=== PATIENT | male | born 1935 | race Caucasian/White ===

== ENCOUNTER 2022-03-16 17:45 | Inpatient (IN) | payer MEDICARE ==
[~2022-03-16] VITALS: Ht 185.4 cm; Wt 77.4 kg
[2022-03-17 01:22] LABS: BASOPHILS ABSOLUTE AUTO 0.06 K/mm3 (0.00-0.23); BASOPHILS PERCENT AUTO 0 % (0-2); EOSINOPHILS ABSOLUTE AUTO 0.06 K/mm3 (0.00-0.68); EOSINOPHILS PERCENT AUTO 0 % (0-6); Hemoglobin 10.8 g/dL (13.5-17.5); IMMATURE GRAN ABSOLUTE AUTO 0.27 K/mm3 (0.00-0.10); IMMATURE GRAN PERCENT AUTO 1 % (0-1); LYMPHOCYTES PERCENT AUTO 6 % (21-46); MONOCYTES ABSOLUTE AUTO 0.95 K/mm3 (0.16-1.47); MONOCYTES PERCENT AUTO 4 % (4-13); Mean Corpuscular HGB 30.5 pg (26.0-34.0); Mean Corpuscular HGB Conc 33.8 g/dL (31.5-36.5); Mean Corpuscular Volume 90 fL (80-100); Mean Platelet Volume 9.3 fL (9.1-12.4); NEUTROPHILS PERCENT AUTO 89 % (41-73); Platelet Count 671 K/mm3 (150-400); RDW Coefficient Variation 14.6 % (11.7-14.2); RDW Standard Deviation 48.6 fL (35.1-46.3); Red Blood Cell Count 3.54 M/mm3 (4.30-5.90); White Blood Cell Count 25.64 K/mm3 (4.00-11.30)
[2022-03-17 01:40] LABS: Albumin, Blood 2.6 g/dL (3.4-5.0); Albumin/Globulin Ratio 0.5 (0.8-1.8); Bilirubin, Total 0.6 mg/dL (0.1-1.0); Bun/Creatinine Ratio 23.9 (12.0-20.0); Calcium, Blood 8.3 mg/dL (8.5-10.1); Creatinine, Blood 3.43 mg/dL (0.60-1.20); Globulin, Blood 5.1 g/dL (2.2-4.0); Potassium, Blood 4.9 mmol/L (3.5-5.5); Total Protein, Blood 7.7 g/dL (6.4-8.2)
[2022-03-17 01:57] LABS: Source, Urine Foley catheter
[2022-03-17 02:12] LABS: Bilirubin, Urine Neg (Neg); Blood, Urine 5+ (Neg); Glucose Qualitative, Urine Neg (Neg); Ketones, Urine Neg (Neg); Leukocyte Esterase, Urine 3+ (Neg); Nitrite, Urine Pos (Neg); Protein, Urine 1+ (Neg); Urobilinogen, Urine NORM (Normal)
[2022-03-17 02:24] LABS: Appearance, Urine Hazy (Clear); Color, Urine Yellow (P-Yellow)
[2022-03-17 02:25] LABS: Amorphous Light (0-Heavy); Bacteria Mod /hpf; Squamous Epithelial Cells Not Seen /hpf (Few); White Blood Cells, Urine 50-100 /hpf (0-5)
--- NOTE | 2022-03-17 06:50 | NUR ---
SHIFT SUMMARY PT CONFUSED. BED ALARM ON. PT VOMITED X3, BROWN EMESIS, SUCTION AT BEDSIDE. MEDICATED FOR NAUSEA TWICE. UNABLE TO ANSWER ADMITTING QUESTIONS, FILLED IN WHAT I COULD WITH TRANSFER PAPERWORK. NPO. DOES NOT CALL APPROPRIATELY, BUT CALL LIGHT WITHIN REACH.
[2022-03-17] MEDS ORDERED: LATA.005SO BOTHEYES (08:36)
[2022-03-17] MEDS ORDERED: Alphagan P5 ML BOTHEYES (08:36)
[2022-03-17] MEDS ORDERED: FERROUS SULFAT325 M3 PO (08:38)
[2022-03-17] MEDS ORDERED: ASPI325 PO (08:39)
[2022-03-17] MEDS ORDERED: OMEP20ER PO (08:39)
[2022-03-17] MEDS ORDERED: MIRALAX17 GM PO (08:39)
[2022-03-17] MEDS ORDERED: SENN187 PO (08:40)
[2022-03-17] MEDS ORDERED: MULTIPLE VITAM1 EACH PO (08:40)
[2022-03-17 10:09] LABS: Bun/Creatinine Ratio 24.3 (12.0-20.0); Calcium, Blood 8.3 mg/dL (8.5-10.1); Creatinine, Blood 3.34 mg/dL (0.60-1.20); Potassium, Blood 4.7 mmol/L (3.5-5.5)
--- NOTE | 2022-03-17 15:28 | NUR ---
TELEPHONE CALL WITH CINDY MAYA, UPDATED ON CODE STATUS DNR, SBFT FRIDAY.
--- NOTE | 2022-03-17 15:30 | NUR ---
SHIFT SUMMARY PT A&OX1, PLEASANTLY CONFUSED. PLAN TO REMAIN NPO/ORAL CARE, SBFT FRIDAY, ZOFRAN Q6P, ABX PER EMAR. ZULMA/NIAVA AWARE OF PLAN. WILL REPORT TO ONCOMING NOC RN.
[2022-03-17 17:43] LABS: Bun/Creatinine Ratio 22.3 (12.0-20.0); Calcium, Blood 8.1 mg/dL (8.5-10.1); Creatinine, Blood 3.36 mg/dL (0.60-1.20); Potassium, Blood 4.6 mmol/L (3.5-5.5)
--- NOTE | 2022-03-18 00:13 | NUR ---
SUMMARY NO NEW CHANGES NOTED. PT DRY HEAVES AT TIMES. NO EMESIS NOTED. ORAL CARE PERFORMED AND PT TOLERATED WELL. CALL LIGHT IN REACH AND BED ALARM ON.
[2022-03-18 05:02] LABS: Hematocrit 32.3 % (37.0-53.0); Hemoglobin 10.3 g/dL (13.5-17.5); Mean Corpuscular HGB 29.4 pg (26.0-34.0); Mean Corpuscular HGB Conc 31.9 g/dL (31.5-36.5); Mean Corpuscular Volume 92 fL (80-100); Mean Platelet Volume 9.3 fL (9.1-12.4); Platelet Count 716 K/mm3 (150-400); RDW Coefficient Variation 14.6 % (11.7-14.2); RDW Standard Deviation 48.8 fL (35.1-46.3); White Blood Cell Count 20.56 K/mm3 (4.00-11.30)
[2022-03-18 05:18] LABS: Bun/Creatinine Ratio 21.1 (12.0-20.0); Calcium, Blood 8.1 mg/dL (8.5-10.1); Creatinine, Blood 3.51 mg/dL (0.60-1.20); Potassium, Blood 4.2 mmol/L (3.5-5.5)
--- NOTE | 2022-03-18 05:42 | NUR ---
SHIFT SUMMARY PT A&OX1, PLEASANT BUT CONFUSED. MEDICATING FOR NAUSEA PER EMAR. VSS. PT DID VOMIT ONCE, 275ML BROWN/DARK. ORAL CARE PERFORMED/SUCTION WHEN NEEDED. REMAINS NPO. BED ALARM, CALL LIGHT WITHIN REACH, THOUGH PT HAS NOT BEEN USING IT.
--- NOTE | 2022-03-18 17:26 | NUR ---
SHIFT SUMMARY SBO SMALL BOWEL FOLLOW THROUGH TODAY. PT REMAINS AA0X1, IMPULSIVE AND FORGETFUL BUT PLEASANT. BED ALARM ON DURING SHIFT, PT ATTEMPTS OOB. REPORTS FEELING NAUSEA WHEN DRINKING THE CONTRAST FOR THE FOLLOW THROUGH BUT NO EMESIS. BETANCOURT REMAINS PATENT AND DRAINING.
--- NOTE | 2022-03-19 04:19 | NUR ---
SHIFT SUMMARY PT PLEASANTLY CONFUSED, BUT COOPERATIVE WITH CARE. MULTIPLE LIQUID BOWEL MOVEMENTS THIS SHIFT. BTS HYPERACTIVE. PT DENIES N/V. CHANGING ATTENDS PRN. BETANCOURT INTACT AND DRAINING YELLOW URINE. NEW IV PLACED. BED ALARM IN PLACE FOR SAFETY. CALL LIGHT WITHIN REACH.
[2022-03-19 04:58] LABS: Hematocrit 34.3 % (37.0-53.0); Hemoglobin 10.8 g/dL (13.5-17.5); Mean Corpuscular HGB 29.6 pg (26.0-34.0); Mean Corpuscular HGB Conc 31.5 g/dL (31.5-36.5); Mean Corpuscular Volume 94 fL (80-100); Mean Platelet Volume 9.4 fL (9.1-12.4); Platelet Count 796 K/mm3 (150-400); RDW Coefficient Variation 14.6 % (11.7-14.2); RDW Standard Deviation 50.6 fL (35.1-46.3); Red Blood Cell Count 3.65 M/mm3 (4.30-5.90); White Blood Cell Count 19.84 K/mm3 (4.00-11.30)
[2022-03-19 05:50] LABS: Bun/Creatinine Ratio 22.7 (12.0-20.0); Calcium, Blood 8.3 mg/dL (8.5-10.1); Creatinine, Blood 3.31 mg/dL (0.60-1.20); Potassium, Blood 4.5 mmol/L (3.5-5.5)
--- NOTE | 2022-03-19 11:18 | NUR ---
ADVANCED TO CLEAR LIQUIDS PROVIDED PATIENT WITH SOME JELLO AND ICE WATER. TOLERATING WELL SO FAR. NO NAUSEA REPORTED AT THIS TIME.
[2022-03-19] MEDS ORDERED: ASPI81CH PO (13:40)
[2022-03-19] MEDS ORDERED: AMOX500 PO (13:41)
--- NOTE | 2022-03-19 19:03 | NUR ---
SHIFT SUMMARY PT REMAINS CONFUSED AND DIFFICULT TO REDIRECT DURING SHIFT. VERY COOPERATIVE WITH CARE AND PLEASANT. MULTIPLE LOOSE INC STOOLS DURING SHIFT. BARRIER CREAM APPLIED TO TALISHA AREA WITH EACH CHANGE TO PREVENT BREAKDOWN. IV PULLED DURING SHIFT. PLAN IS FOR PATIENT TO DISCHARGE TO HIS HOME CARE FACILITY TOMORROW.
--- NOTE | 2022-03-20 05:08 | NUR ---
SHIFT SUMMARY PT REMAINS PLEASANTLY CONFUSED. NONSENSICAL WITH WORDS. FEWER INCONTINENT LIQ STOOLS T/O SHIFT. CAN REPOSITION SELF IN BED. BED ALARM IN PLACE FOR SAFETY + MONITORS ON. TRANSPORT TO ARRIVE AT APPROX 0700 TO TAKE PT BACK TO SNF.
--- NOTE | 2022-03-20 09:39 | NUR ---
DISCHARGED IN [facility] TO GO TO [facility]. CAREGIVER NOTIFIED. PACKET SENT.
== END 2022-03-20 09:30 | disposition home health service (06) | DRG 698 ==
LOC: SURS 17:45
PROVIDERS: Family Medicine; Internal Medicine; ADMIT Internal Medicine
DX: T83.511A Infection and inflammatory reaction due to indwelling urethral catheter, initial encounter (principal); A41.81 Sepsis due to Enterococcus; N17.9 Acute kidney failure, unspecified; E87.0 Hyperosmolality and hypernatremia; K40.30 Unilateral inguinal hernia, with obstruction, without gangrene, not specified as recurrent; F03.90 Unspecified dementia, unspecified severity, without behavioral disturbance, psychotic disturbance, mood disturbance, and anxiety; N39.0 Urinary tract infection, site not specified; Z66 Do not resuscitate; E86.0 Dehydration; Y84.6 Urinary catheterization as the cause of abnormal reaction of the patient, or of later complication, without mention of misadventure at the time of the procedure
CPT/HCPCS: 36415; 74250; 76770; 80048; 80053; 81001; 85025; 85027; 87077; 87086; 87186; 97116; 97162; 97530; J0696; J1956; J2405; J7030; J7070; J7120

== ENCOUNTER 2022-03-21 19:03 | Inpatient (IN) | payer MEDICARE ==
[~2022-03-21] VITALS: Ht 182.9 cm; Wt 68.4 kg
[~2022-03-21 19:03] MED LIST: AMOX500 PO; ASPI325 PO; ASPI81CH PO; Alphagan P5 ML BOTHEYES; FERROUS SULFAT325 M3 PO; LATA.005SO BOTHEYES; MIRALAX17 GM PO; MULTIPLE VITAM1 EACH PO; OMEP20ER PO; SENN187 PO
--- NOTE | 2022-03-21 22:15 | NUR ---
TRANSFER OF CARE NOTE PT ARRIVED TO ICU 15 VIA EMS FROM [facility]. PT WAS OBTUNDED UPON ARRIVAL WELL NONVERBAL, BUT HE RESPONDS TO TACTLE/PAINFUL STIMULI. PUPILS EQUAL BILAT, BUT PUILIARY RESPONSE WAS SLUGGISH. ON RA MAINTAINING SPO2 >95% WITH NO SOB OR DYSPNEA NOTED, BREATHS ARE SHALLOW AND IRREGULAR. CARDIAC GRIFFIN, PT IN SR-ST 90'S-100'S, BUT IS UNABLE TO REPORT ANY CP OR PRESSURE AT THIS TIME. EKG CONDUCTED WELL ADDITIONAL TROP DRAWN PER MD ORDERS. BP'S STABLE AT THIS TIME. 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 BETANCOURT CHANGED PER PROTOCOL, CATH PATENT AND DRAINING YELLOW/CLOUDY URINE TO GRAVITY. ABD NON-TENDER WITH BS PRESENT IN ALL QUADRANTS. WILL CONTINUE TO MONITOR PT.
[2022-03-22 00:21] LABS: Source, Urine Foley catheter
[2022-03-22 00:29] LABS: Bilirubin, Urine Neg (Neg); Blood, Urine 4+ (Neg); Glucose Qualitative, Urine Neg (Neg); Ketones, Urine Neg (Neg); Leukocyte Esterase, Urine 2+ (Neg); Nitrite, Urine Neg (Neg); Protein, Urine 2+ (Neg); Specific Gravity, Urine 1.015 (1.003-1.022); Urobilinogen, Urine NORM (Normal)
[2022-03-22 01:31] LABS: Appearance, Urine Hazy (Clear); Color, Urine Yellow (P-Yellow)
[2022-03-22 02:55] LABS: Amorphous Light (0-Heavy); Bacteria Few /hpf; Hyaline Casts 0-2 /lpf (0-2); Squamous Epithelial Cells Rare /hpf (Few)
[2022-03-22 03:47] LABS: BASOPHILS ABSOLUTE AUTO 0.12 K/mm3 (0.00-0.23); BASOPHILS PERCENT AUTO 1 % (0-2); EOSINOPHILS ABSOLUTE AUTO 0.32 K/mm3 (0.00-0.68); EOSINOPHILS PERCENT AUTO 2 % (0-6); Hematocrit 32.5 % (37.0-53.0); Hemoglobin 10.1 g/dL (13.5-17.5); IMMATURE GRAN ABSOLUTE AUTO 0.14 K/mm3 (0.00-0.10); IMMATURE GRAN PERCENT AUTO 1 % (0-1); LYMPHOCYTES ABSOLUTE AUTO 3.19 K/mm3 (0.84-5.20); LYMPHOCYTES PERCENT AUTO 15 % (21-46); MONOCYTES ABSOLUTE AUTO 1.54 K/mm3 (0.16-1.47); MONOCYTES PERCENT AUTO 7 % (4-13); Mean Corpuscular HGB Conc 31.1 g/dL (31.5-36.5); Mean Corpuscular Volume 96 fL (80-100); Mean Platelet Volume 9.9 fL (9.1-12.4); NEUTROPHILS ABSOLUTE AUTO 15.67 K/mm3 (1.96-9.15); NEUTROPHILS PERCENT AUTO 75 % (41-73); Platelet Count 582 K/mm3 (150-400); RDW Coefficient Variation 15.5 % (11.7-14.2); RDW Standard Deviation 54.1 fL (35.1-46.3); Red Blood Cell Count 3.37 M/mm3 (4.30-5.90); White Blood Cell Count 20.98 K/mm3 (4.00-11.30)
[2022-03-22 04:12] LABS: Magnesium, Blood 2.3 mg/dL (1.6-2.4)
[2022-03-22 04:29] LABS: Albumin, Blood 2.5 g/dL (3.4-5.0); Albumin/Globulin Ratio 0.6 (0.8-1.8); Bilirubin, Total 0.4 mg/dL (0.1-1.0); Bun/Creatinine Ratio 20.1 (12.0-20.0); Calcium, Blood 7.4 mg/dL (8.5-10.1); Creatinine, Blood 3.93 mg/dL (0.60-1.20); Phosphorus, Blood 4.4 mg/dL (2.5-4.9); Potassium, Blood 4.4 mmol/L (3.5-5.5); Total Protein, Blood 6.5 g/dL (6.4-8.2)
--- NOTE | 2022-03-22 05:03 | NUR ---
UPDATE RECEIVED CRITICAL LAB VALUES FROM LAB OF TROP OF [address] WALKER NOTIDED. D5 FLUID RATE INCREASED TO 150MLS/HR PER MD's ORDERS. SEE EMAR
--- NOTE | 2022-03-22 05:58 | NUR ---
SHIFT SUMMARY PT ARRIVED VIA EMS FROM [facility] DUE TO PT'S INCREASED SERUM SODIUM LEVELS. PT HAS BEEN OBTUNDED/NONVERBAL T/O THE SHIFT. RESPONDS TO TACTILE/PAINFUL STIMULI. ON RA MAINTAINING SPO2 >95% WITH NO SOB, BREATHS CONTINUE TO BE SHALLOW AND IRREGULAR.CARDIAC GRIFFIN, PT IN SR-ST IN THE 90'S-100'S. PT'S HR WOULD OCCASIONALLY JUMP UP TO THE 130'S-150'S FOR A VERY SHORT AMOUNT OF TIME, BUT PT DOES NOT SUSTAIN THIS RATE. TROP INCREASED TO 170 DURING THE NIGHT, BUT MD NOT CONCERNED AT THIS TIME UNLESS THERE IS A BIG JUMP IN TROP. BP'S CONTINUE TO BE SOFT DURING THE NIGHT WITH MAP BEING >65. 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 BETANCOURT CHANGED PER PROTOCOL, CATH PATENT AND DRAINING YELLOW/CLOUDY URINE TO GRAVITY. ABD IS NON-TENDER WITH BS PRESENT IN ALL QUADRANTS. PT IS NPO AND ON BEDREST PER MD'S ORDERS AT THIS TIME
--- NOTE | 2022-03-22 07:15 | NUR ---
Assumed care of pt at 0715 Bedside report recieved from NOC shift RN. Pt appears to be resting comfortably on RA. Has been confused/non-verbal and not following commands since arriving to ICU. Pt is reportedly alert and oriented at baseline. Has had intermittent runs of SVT with HR up to 150-170 throughout the night as well as a 19 beat run of V tach this am at 0645. Charge nurse notified MD. BP remains stable dring events. Underlying rhythm is SR in the 60-70's. Pt has chronic tomlinson that was changed this admission and UA sent. Tomlinson is draining clear yellow urine. Pt has D5 at 150ml/hr running into a left forearm PIV. No family at bedside. RN to continue to monitor.
[2022-03-22 08:26] LABS: Bun/Creatinine Ratio 19.3 (12.0-20.0); Calcium, Blood 7.8 mg/dL (8.5-10.1); Creatinine, Blood 3.84 mg/dL (0.60-1.20); Potassium, Blood 4.4 mmol/L (3.5-5.5)
--- NOTE | 2022-03-22 08:35 | NUR ---
Call received from [facility] Bethany with [facility] called to check on the status of pt. Update provided. The [facility] follows pt for his chronic tomlinson care. Pt lives at [facility] . Pt's niece Isabela Welsh is pt's POA. Pt's PCP is Vladimir Meier and is located in [place]. [facility] would appreciate contact for coordination of services to either Bethany or [place]. Will pass info on to City Distribution Clerk. RN to continue to follow
--- NOTE | 2022-03-22 08:47 | NUR ---
Dr. Crandall and Dr. Earl in to see pt. Dr. Crandall to bedside to assess pt. She would like 2 Liters of D5 given over 4 hours and Na+ rechecks every [address] Crandall would like to be notified of next Na+ level at 1100. Dr. Earl to bedside to assess pt. She would like pt to have CXR and ABD XR this am. When appropriate, she would like a head CT as well. Pt is not currently cooperative enough for Head CT. RN to continue to monitor.
--- NOTE | 2022-03-22 13:26 | NUR ---
UPDATE TO DR. BRITNEY TAN NOTIFIED OF NA+ 160. ORDERS RECIEVED TO STOP MAINTENANCE INFUSION OF D5 AT 200ML/HR. PT IS NOW SL. RECHECK NA IN 4 HOURS AND NOTIFY MD OF RESULTS. GOAL IS TO KEEP NA BETWEEN 160-170. RN TO CONTINUE TO MONITOR.
--- NOTE | 2022-03-22 15:50 | NUR ---
Head CT Head CT ordered and completed. Pt mentation improving, is opening eyes to voice and intermittently following commands. Awaiting results from 1500 Na+ lab draw. Dr. Crandall wants to be notified of results. RN to continue to follow
--- NOTE | 2022-03-22 18:35 | NUR ---
END OF SHIFT SUMMARY NEURO STATUS IMPROVING SLIGHTLY THROUGHOUT SHIFT. PT NOW OPENS EYES TO VOICE AND NODS HEAD APPROPRIATELY OCCASIONALLY. HE VERBALIZED "THAT TICKLES" WHEN SWABBING MOUTH. HEAD CT COMPLETED. SODIUM DECREASED FROM 172 TO LOW 16O AFTER 2 LITERS D5 OVER 4 HOURS. PER MD, RESTART D5 AT 100 ML/HR IF NA > 165. NEXT BMP SCHEDULED AT 1900. MD WILL CALL FOR UPDATED RESULTS AFTER 1999. PT HAD SIGNIFICANT AMOUNTS OF ECTOPY THIS AM INCLUDING 16 BEATS OF VTACH WELL SHORT RUNS OF SVT. BP REMAINED STABLE. ECTOPY HAS IMPROVED THIS AFTERNOON. BASELINE RHYTHM IS NORMAL SINUS RHYTHM. ON RA WITH O2 SATS >95%, LUNGS CTA THROUGHOUT. BS NORMOACTIVE, NO BM THIS SHIFT. HAS CHRONIC INDWELLING BETANCOURT WITH 1000ML OUT/12 HOURS. SKIN INTACT WITH SOME SCATTERED BRUISING. PT HAS PIV X1 LEFT FOREARM AND POWERGLIDE IN LEFT UPPER ARM, FLUSHES WELL, SLUGGISH BLOOD RETURN. NO FAMILY AT BEDSIDE, NIECE CALLED FOR UPDATE AT 1830, ALL QUESTIONS ANSWERED. PALLIATIVE CARE CONSULT PLACED AND THEY ARE FOLLOWING, PT IS DNR. RN TO CONTINUE TO MONITOR.
[2022-03-22 20:25] LABS: Albumin, Blood 2.3 g/dL (3.4-5.0); Albumin/Globulin Ratio 0.6 (0.8-1.8); Bilirubin, Total 0.2 mg/dL (0.1-1.0); Bun/Creatinine Ratio 18.8 (12.0-20.0); Creatinine, Blood 3.46 mg/dL (0.60-1.20); Potassium, Blood 3.9 mmol/L (3.5-5.5); Total Protein, Blood 6.3 g/dL (6.4-8.2)
[2022-03-23 04:46] LABS: BASOPHILS ABSOLUTE AUTO 0.06 K/mm3 (0.00-0.23); BASOPHILS PERCENT AUTO 0 % (0-2); EOSINOPHILS PERCENT AUTO 1 % (0-6); Hematocrit 30.1 % (37.0-53.0); Hemoglobin 9.5 g/dL (13.5-17.5); IMMATURE GRAN ABSOLUTE AUTO 0.11 K/mm3 (0.00-0.10); IMMATURE GRAN PERCENT AUTO 1 % (0-1); LYMPHOCYTES ABSOLUTE AUTO 2.79 K/mm3 (0.84-5.20); LYMPHOCYTES PERCENT AUTO 18 % (21-46); MONOCYTES ABSOLUTE AUTO 1.04 K/mm3 (0.16-1.47); MONOCYTES PERCENT AUTO 7 % (4-13); Mean Corpuscular HGB Conc 31.6 g/dL (31.5-36.5); Mean Corpuscular Volume 95 fL (80-100); Mean Platelet Volume 10.1 fL (9.1-12.4); NEUTROPHILS ABSOLUTE AUTO 11.35 K/mm3 (1.96-9.15); NEUTROPHILS PERCENT AUTO 73 % (41-73); Platelet Count 455 K/mm3 (150-400); RDW Coefficient Variation 15.3 % (11.7-14.2); RDW Standard Deviation 52.9 fL (35.1-46.3); Red Blood Cell Count 3.17 M/mm3 (4.30-5.90); White Blood Cell Count 15.55 K/mm3 (4.00-11.30)
[2022-03-23 05:08] LABS: Albumin, Blood 2.3 g/dL (3.4-5.0); Anion Gap 3 mmol/L (6-16); Blood Urea Nitrogen 61 mg/dL (8-24); Bun/Creatinine Ratio 17.3 (12.0-20.0); CO2, Blood 25 mmol/L (21-32); Calcium, Blood 7.5 mg/dL (8.5-10.1); Chloride, Blood 134 mmol/L (98-108); Creatinine, Blood 3.52 mg/dL (0.60-1.20); Glomerular Filtration Rate 16 (60-); Glucose, Blood 120 mg/dL (70-99); Phosphorus, Blood 3.4 mg/dL (2.5-4.9); Sodium, Blood 162 mmol/L (136-145)
--- NOTE | 2022-03-23 05:51 | NUR ---
SHIFT SUMMARY PT ALERT TO SELF, WHICH IMPROVED WHEN D5 DRIP WAS STARTED. PT ABLE TO MAKE OUT CLEARER WORDS, BUT ONLY INTERMITTENLY FOLLOWED COMMANDS. SODIUM LEVELS RANGED FROM 164 TO 162 AFTER D5 DRIP STARTED. PER MD - NOTIFY IF NA DROPS <160 SR THROUGHOUT THE NIGHT WITH SOME ECTOPY; OCCAISIONALLY IRREGULAR HEART BEAT. BP STABLE ON RA WITH O2 SATS >95%, BREATH SOUNDS CLEAR THROUGHOUT. PT REMAINS NPO AND NO BM THIS SHIFT. CHRONIC INDWELLING BETANCOURT REMAINS IN PLACE DRAINING CLEAR YELLOW URINE, 850ML OUT OVERNIGHT. NO C/O PAIN. PLAYED CALMING MUSIC IN BACKGROUND AND PT SLEPT WELL.
--- NOTE | 2022-03-23 08:25 | NUR ---
CARE OF PT ASSUMED AT 0700. PT SLEEPING IN BED, AWAKENS TO VOICE. HAS DIFFICULTY OPENING EYES, DOES NOT FOLLOW COMMANDS. PT DOES SMILE WHEN YOU SPEAK TO HIM. PT MAKES ONLY SOUNDS, NO WORDS, GIBERISH. COCCYX SLIGHTLY RED, PT PLACED FAR ON SIDE. D5 INFUSING AT 100CC/HR. NA PENDING. TEMP 99.7, OTHERWISE VSS.
--- NOTE | 2022-03-23 10:19 | NUR ---
DR TAN AND DR MILLER GIVEN UPDATE.
--- NOTE | 2022-03-23 17:03 | NUR ---
PT ASKED WHERE HIS GLASSES WHERE, ALL OTHER SPEECH INCOMPREHENSIBLE. PT UNABLE TO FOLLOW COMMANDS, BUT MORE AWAKE.
--- NOTE | 2022-03-23 19:37 | NUR ---
ASSUME CARE PT SLEEPING AND AWAKENS TO VERBAL STIMULI. NOT ORIENTED. APHASIA NOTED. DOES NOT ANSWER QUESTIONS APPROPRIATELY, NONSENSICAL MUMBLING WITH INTERMITTENT FORMED SENTENCES. DOES NOT APPEAR TO BE IN ANY DISTRESS. BETANCOURT IN PLACE. MOVES ALL FOUR EXTREMITIES AGAINST GRAVITY.
[2022-03-24 03:35] LABS: BASOPHILS ABSOLUTE AUTO 0.04 K/mm3 (0.00-0.23); BASOPHILS PERCENT AUTO 0 % (0-2); EOSINOPHILS ABSOLUTE AUTO 0.22 K/mm3 (0.00-0.68); EOSINOPHILS PERCENT AUTO 2 % (0-6); Hematocrit 33.1 % (37.0-53.0); Hemoglobin 10.3 g/dL (13.5-17.5); IMMATURE GRAN ABSOLUTE AUTO 0.07 K/mm3 (0.00-0.10); IMMATURE GRAN PERCENT AUTO 1 % (0-1); LYMPHOCYTES ABSOLUTE AUTO 2.97 K/mm3 (0.84-5.20); LYMPHOCYTES PERCENT AUTO 22 % (21-46); MONOCYTES ABSOLUTE AUTO 0.97 K/mm3 (0.16-1.47); MONOCYTES PERCENT AUTO 7 % (4-13); Mean Corpuscular HGB 29.3 pg (26.0-34.0); Mean Corpuscular HGB Conc 31.1 g/dL (31.5-36.5); Mean Corpuscular Volume 94 fL (80-100); Mean Platelet Volume 10.1 fL (9.1-12.4); NEUTROPHILS ABSOLUTE AUTO 9.39 K/mm3 (1.96-9.15); NEUTROPHILS PERCENT AUTO 69 % (41-73); Platelet Count 437 K/mm3 (150-400); RDW Standard Deviation 51.6 fL (35.1-46.3); Red Blood Cell Count 3.52 M/mm3 (4.30-5.90); White Blood Cell Count 13.66 K/mm3 (4.00-11.30)
[2022-03-24 03:52] LABS: Albumin, Blood 2.4 g/dL (3.4-5.0); Anion Gap 2 mmol/L (6-16); Blood Urea Nitrogen 44 mg/dL (8-24); Bun/Creatinine Ratio 15.3 (12.0-20.0); CO2, Blood 25 mmol/L (21-32); Calcium, Blood 7.5 mg/dL (8.5-10.1); Chloride, Blood 129 mmol/L (98-108); Creatinine, Blood 2.87 mg/dL (0.60-1.20); Glomerular Filtration Rate 21 (60-); Glucose, Blood 103 mg/dL (70-99); Phosphorus, Blood 2.9 mg/dL (2.5-4.9); Potassium, Blood 3.8 mmol/L (3.5-5.5); Sodium, Blood 156 mmol/L (136-145)
--- NOTE | 2022-03-24 06:21 | NUR ---
END OF SHIFT SUMMARY NEURO: PATIENT REMAINS DISORIENTED. INTERMITTENTLY FOLLOWS COMMANDS. SPEECH IN TANGENTIAL, CAN FORM SENTENCES AT TIMES BUT OFTEN WILL MUMBLE INCOHERENTLY. UNABLE TO MAKE NEEDS KNOWN. SENSATION TO PAIN IN ALL FOUR EXTREMITIES. CARDIAC: SINUS RHYTHM TO SINUS ARRHYTHMIA. HR 60s-130s. SHORT RUN OF SVT OVERNIGHT. RESPIRATORY: RA. CLEAR BREATH SOUNDS APPRECIATED BILATERALLY. PT DOES NOT SEEM TO BE IN ANY FORM OF DISTRESS. GI/: NO BOWEL MOVEMENT OVERNIGHT. ABDOMEN SOFT AND NONTENDER. NORMOACTIVE BOWEL SOUNDS. 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 PT PUTTING OUT ADEQUATE AMOUNTS OF HAZY YELLOW URINE MUSCULOSKELETAL: GENERALIZED WEAKNESS. FULL MOVEMENT IN ALL FOUR EXTREMITIES. INTEGUMENTARY: BLANCHABLE COCCYX. TURNING PT Q2. DIFFUSE BRUISING TO BUE. PALE AND FRAGILE SKIN. FLUIDS: D5W @ 100 ML/HR. TRENDING LABS: SODIUM 156 AT 0215
--- NOTE | 2022-03-24 08:36 | NUR ---
CARE OF PT ASSUMED AT 0700. PT MUCH MORE AWAKE AND ALERT THIS AM. ABLE TO STATE HIS NAME, THINKS HE IS IN [place], HE IS ABLE TO FOLLOW COMMANDS. PT IS VERY CONFUSED, UNABLE TO RE-ORIENT BUT PT VERY CALM, PLEASANT, AND COOPERATIVE. PT ATTEMPTS TO GET OUT OF BED TO "LEAVE" BUT DOESNT HAVE THE STRENGTH TO ACTUALLY CLIMB OUT OF BED. PT FAILED BEDSIDE SWALLOW EVAL. D5W CONTINUES AT 100CC/HR. NA 156.
--- NOTE | 2022-03-24 10:31 | NUR ---
BEDSIDE VIDEO/FACE TIME ASSESSMENT COMPLETED BY DR TAN AND EILEEN BASSETT. PLAN: CONTINUE D5W, NA Q 6, CALL FOR NA LESS THAN 150.
--- NOTE | 2022-03-24 11:32 | NUR ---
DR MILLER IN TO SEE PT, UPDATE GIVEN. PT NOW MED STATUS W TELE.
--- NOTE | 2022-03-24 15:30 | NUR ---
PT TRANSFERED TO ROOM 301 IN STABLE CONDITION.
--- NOTE | 2022-03-24 16:36 | NUR ---
Isabeal Bingham ([facility]) [phone] updated by phone on improved level of alertness, improving sodium level, results of swallow eval & overall status. We reviewed her desired goals of care for pt and future plans for care. Isabela confirms that no artificial feeding tube desired if pt's swallow does not improve. She had already been discussing EOL/hospice care with pt's current AF provider and providers. She would like hospice care on d/c with the [facility] agency that has been seeing Junior in [place]. Pt had lived in niece's home for a short time but niece is elderly and caring for her also. She states pt does not like his AFH but feels he would not like any placement in particular and she is unable to bring him to her home again. She said returning to his current AFH is really the only option when he is medically ready for d/c. If pt remains in hospital, she will try to come over late in the week to visit. She states he his more like a brother to her than her uncle. She shared that music calms him. I told her I would make sure he had music playing and would pass on her love to him. At bedside, pt was sleeping but woke easily when spoken to. His eyes lit up when I told him I had been talking with Isabela and that she wanted him to know she loved him and was thinking about him. Music was already on and call light close to his ears on resting his chest. Pt appears very comfortable and calm resting supine. [facility] care plans to visit daily for support and ongoing advanced care planning with beto. Update to RN on above.
--- NOTE | 2022-03-24 17:34 | NUR ---
ARRIVAL TO [facility] AND SHIFT SUMMARY PATIENT ARRIVED FROM ICU BY ICU BED AT APPROX 1500. PATIENT IS ALERT AND ORIENTED TO SELF. PLEASANTLY CONFUSED. PATIENT HAS CLEAR LUNG SOUNDS ON RA. PATIENT APPEARS IN NO DISTRESS. PATIENT SMILES AT STAFF AND WILL TALK TO SELF IN ROOM, AND TALK TO STAFF WHEN IN ROOM. PATIENT ENJOYS MUSIC PER REPORT AND MUSIC IS PLAYING FOR HIM THROUGH THE CALL LIGHT RESTING ON HIS CHEST. PATIENT HAS D5W AT 100MLS/HR INFUSING. PATIENT HAS BEEN REPOOSITIONED, Q2HR. DURING REPOSITIONING THIS RN HAS PROVIDED ORAL CARE TO KEEP MOUTH MOISTUIZED DUE TO NPO STATUS. PATIENT HAS DRY MUCOUS MEMBRANES IN THE MOUTH AND DRY TONGUE. BED ALARM IS ON. BED IS IN LOWEST POSITION. AND CALL LIGHT WITHIN REACH.
--- NOTE | 2022-03-24 20:19 | NUR ---
AWAKE AND TALKATIVE. SPEECH RAMBLING. IVF INFUSING. DENIES PAIN. CALL LIGHT IN REACH. ENCOURAGED TO USE CALL LIGHT IF NEEDS ARRISE.
--- NOTE | 2022-03-25 05:57 | NUR ---
TECHNICAL COMMUNICATOR SUMMARY NPO UNTIL PASSES SWALLOW STUDY. ORAL CARE GIVEN INTERMITTENTLY. IVF INFUSING - SEE MAR FOR DETAILS. ALERT TO SELF BUT OTHERWISE VERBAL RESPONSE HAS BEEN INCOHERENT. MULTIPLE ATTEMPTS TO CLIMB OUT OF BED, VERY HIGH FALL RISK. NOT REDIRECTABLE. MD NOTIFIED AND PLACED IN SISSY VEST [facility] RAILS UP X 4 FOR SAFETY. QASIM WAS NOTIFIED OF PT RESTRAINTS AND VOICED UNDERSTANDING. PT HAS BEEN RSTING QUIETLY WITH FEW INTERRUPTIONS SINCE. CALL LIGHT IN REACH. NA+ LEVELS DRAWN - SEE LABS, AND SEE MAR FOR DETAILS OF MEDS GIVEN.
[2022-03-25 06:19] LABS: BASOPHILS ABSOLUTE AUTO 0.06 K/mm3 (0.00-0.23); BASOPHILS PERCENT AUTO 1 % (0-2); EOSINOPHILS ABSOLUTE AUTO 0.22 K/mm3 (0.00-0.68); EOSINOPHILS PERCENT AUTO 2 % (0-6); Hematocrit 33.6 % (37.0-53.0); Hemoglobin 10.6 g/dL (13.5-17.5); IMMATURE GRAN ABSOLUTE AUTO 0.07 K/mm3 (0.00-0.10); IMMATURE GRAN PERCENT AUTO 1 % (0-1); LYMPHOCYTES ABSOLUTE AUTO 2.92 K/mm3 (0.84-5.20); LYMPHOCYTES PERCENT AUTO 25 % (21-46); MONOCYTES PERCENT AUTO 8 % (4-13); Mean Corpuscular HGB 29.5 pg (26.0-34.0); Mean Corpuscular HGB Conc 31.5 g/dL (31.5-36.5); Mean Corpuscular Volume 94 fL (80-100); Mean Platelet Volume 10.3 fL (9.1-12.4); NEUTROPHILS ABSOLUTE AUTO 7.44 K/mm3 (1.96-9.15); NEUTROPHILS PERCENT AUTO 64 % (41-73); Platelet Count 371 K/mm3 (150-400); RDW Coefficient Variation 14.8 % (11.7-14.2); RDW Standard Deviation 49.7 fL (35.1-46.3); Red Blood Cell Count 3.59 M/mm3 (4.30-5.90); White Blood Cell Count 11.61 K/mm3 (4.00-11.30)
[2022-03-25 06:39] LABS: Albumin, Blood 2.3 g/dL (3.4-5.0); Anion Gap 7 mmol/L (6-16); Blood Urea Nitrogen 33 mg/dL (8-24); Bun/Creatinine Ratio 13.4 (12.0-20.0); CO2, Blood 21 mmol/L (21-32); Calcium, Blood 7.8 mg/dL (8.5-10.1); Chloride, Blood 123 mmol/L (98-108); Creatinine, Blood 2.47 mg/dL (0.60-1.20); Glomerular Filtration Rate 25 (60-); Glucose, Blood 98 mg/dL (70-99); Phosphorus, Blood 2.7 mg/dL (2.5-4.9); Potassium, Blood 3.7 mmol/L (3.5-5.5); Sodium, Blood 151 mmol/L (136-145)
--- NOTE | 2022-03-25 15:20 | NUR ---
Pt more awake and active in bed today, restless at times and attempting to reach or get OOB but unable to. Pt was not able to swallow safely per bedside swallow eval. Please see ST note. I spoke with RN and CM re: nimargarito's desire for pt to return to same AFH in [place], with hospice support for anticipated decline with poor to no nutritional/fluid intake and late stage dementia, frailty. Niece did not feel providing artificial nutrition to Junior would be the right course of action. Pt verbal/interactive but speech rarely understandable. VM left for niece to update her on current status as planned. Nurse had already spoken to her earlier in the day also.
--- NOTE | 2022-03-25 18:37 | NUR ---
SUMMARY- PT REMAINS SEVERELY CONFUSED, DEMENTIA. AWAKE ALL DAY, RESTLESS. TRIED TO CRAWL OUT END OF BED MULP TIMES TODAY EVEN WITH SISSY ON PLACE, REPOSITIONED MULT TIMES. PT NOT DIRECTABLE. PLEASANT AND ALWAYS SMILING AND THANKFUL. REMAINS NPO HE FAILED THE SWALLOW TODAY, SPITTING OUT ANY ORAL ATTEMPTS. CONT WITH IVF VIA POWERGLIDE. BETANCOURT PATENT AND DRAINING.
--- NOTE | 2022-03-26 04:11 | NUR ---
SHIFT SUMMARY NOC PT A/O TO SELF. PT VERY CONFUSED AND IN RESTRAINTS SISSY VEST AND 4 RAILS UP. REASSESSED Q2H PER PROTOCOL. BED ALARM ARMED. PT STILL TRYINTG TO GET OOB DANGLING LEGS OVER SIDE. PT IS NOT REDIRECTABLE. PT STILL HAS CHRONIC BETANCOURT WHICH IS DRAINING YELLOW URINE TO GRAVITY. PT HAS D5W INFUSION RUNNING. PT IS CURRENTLY AWAKE WITH 4 RAILS UP, BED IN LOWEST POSITON.
[2022-03-26 05:16] LABS: BASOPHILS ABSOLUTE AUTO 0.07 K/mm3 (0.00-0.23); BASOPHILS PERCENT AUTO 1 % (0-2); EOSINOPHILS ABSOLUTE AUTO 0.19 K/mm3 (0.00-0.68); EOSINOPHILS PERCENT AUTO 2 % (0-6); Hematocrit 34.1 % (37.0-53.0); Hemoglobin 10.9 g/dL (13.5-17.5); IMMATURE GRAN ABSOLUTE AUTO 0.12 K/mm3 (0.00-0.10); IMMATURE GRAN PERCENT AUTO 1 % (0-1); LYMPHOCYTES PERCENT AUTO 21 % (21-46); MONOCYTES ABSOLUTE AUTO 1.03 K/mm3 (0.16-1.47); MONOCYTES PERCENT AUTO 8 % (4-13); Mean Corpuscular HGB 29.7 pg (26.0-34.0); Mean Corpuscular Volume 93 fL (80-100); Mean Platelet Volume 11.1 fL (9.1-12.4); NEUTROPHILS ABSOLUTE AUTO 8.85 K/mm3 (1.96-9.15); NEUTROPHILS PERCENT AUTO 68 % (41-73); Platelet Count 267 K/mm3 (150-400); RDW Coefficient Variation 14.6 % (11.7-14.2); RDW Standard Deviation 49.1 fL (35.1-46.3); Red Blood Cell Count 3.67 M/mm3 (4.30-5.90); White Blood Cell Count 13.06 K/mm3 (4.00-11.30)
[2022-03-26 05:34] LABS: Albumin, Blood 2.6 g/dL (3.4-5.0); Anion Gap 8 mmol/L (6-16); Blood Urea Nitrogen 29 mg/dL (8-24); Bun/Creatinine Ratio 12.6 (12.0-20.0); CO2, Blood 22 mmol/L (21-32); Calcium, Blood 8.1 mg/dL (8.5-10.1); Chloride, Blood 118 mmol/L (98-108); Glomerular Filtration Rate 27 (60-); Glucose, Blood 91 mg/dL (70-99); Phosphorus, Blood 2.7 mg/dL (2.5-4.9); Potassium, Blood 3.6 mmol/L (3.5-5.5); Sodium, Blood 148 mmol/L (136-145)
--- NOTE | 2022-03-26 16:30 | NUR ---
Assumed Care Received report from DANYELLE Painter. Patient transferred from 301 to 351. Camera verified on. D5W infusing at 100. Awake and alert, oriented to self. Beard intact and draining to gravity. Settled to room. Wall suction set up. Call light in reach. Bed in lowest position.
--- NOTE | 2022-03-26 17:05 | NUR ---
PT TRANSFERRED TO ROOM 351 FOR CLOSER OBSERVATION RELATED TO IMPULSIVITY AND FALL RISK. ATTEMPTED TO CALL FAMILY ETHYL ABOUT PT'S MOVING ROOMS, NO ANSWER AND NO ANSWERING MACHINE
--- NOTE | 2022-03-26 17:06 | NUR ---
SUMMARY- PT ALERT TO SELF. AWAKE AND PLEASANTLY CONFUSED. GIVES EYE CONTACT, SLURRED/THICK GRAVELY SPEECH. DELUSIONS AND CONFUSED. TRIED TO TAKE OFF RESTRAINTS BUT PT REMAINS IMPULSIVE AND CONFUSED, FIDGITY AND TRIES TO GET UP UNATTENDED. ORDER TO REAPPLY RESTRAINTS AT 1700. PT GOT UP FOR THE FIRST TIME TODAY WITH PT/OT. AMBULATED ABOUT 15 FEET WITH WALKER AROUND HIS ROOM. TIRED PT OUT AND HE SLEPT FOR AN HOUR. PT DENIES ANY PAIN. LUNGS ARE CLEAR BUT DIM IN BASES. NO EDEMA. HAD TELE MEETING WITH BRITNEY AT BEDSIDE THIS AM 1000. PLAN ACCORDING TO REYMUNDO SAHA IS FOR PT TO DC TOMORROW HOME ON HOSPICE. PT HAS FAILED SWALLOW EVAL X3 SPITTING FOOD BACK OUT. MOVED TO ROOM 351 AT 1630 FOR CLOSER OBS RELATED TO FALL RISK
--- NOTE | 2022-03-26 17:11 | NUR ---
Spoke with pt's niece LIVIA Mar. She requests pt be placed on comfort care, and be sent home to the [facility] he lives in, [facility] I have updated the face sheet to reflect this. [facility] is also prepared for pt to return home on hospice. Reached out to [facility], packet faxed. Placed hospice referral for Care Management to follow up on discharge in the am.
--- NOTE | 2022-03-26 18:16 | NUR ---
Shift Summary Attempting to climb OOB, difficult to redirect. A/Ox1. Vest and 4 side rails up for safety at this time. Camera on.
--- NOTE | 2022-03-27 03:56 | NUR ---
SHIFT SUMMARY NO OVERNIGHT EVENTS. PT ORIENTED TO SELF, RESTLESS, ON/OFF SLEEP THROUGHOUT NIGHT. SISSY VEST REMAINS IN PLACE FOR SAFETY. BETANCOURT CATHETER IN PLACE, DRAINING CLEAR YELLOW URINE. REPOSITIONED PT FOR COMFORT, PT ABLE TO MOVE AROUND WELL IN BED. DENIES ANY PAIN/SOB/ S/S OF DISTRESS. WILL CONTINUE TO MONITOR.
--- NOTE | 2022-03-27 18:09 | NUR ---
Shift Summary AO to self and person. Denies pain. Sat up in recliner for a good portion of the day. Eating with supervision. 2p max with gaitbelt and FWW, patient fearful of falling. Called [facility] (antichecking iron worker of patient's foster home) and provided updates (failed swallow eval, transfer status, mentation, assistance with feeding, impulsivity, current diet order). Lizz would like patient to stay on puree diet for the mean time so diet was not advanced. Contact info for Lizz is [phone]
--- NOTE | 2022-03-28 03:38 | NUR ---
SHIFT SUMMARY NO OVERNIGHT EVENTS. PT REMAINS OUT OF SISSY. PT FIDGETY WITH HANDS BUT NOT ATTEMPTING TO GET OOB OR PULL LINES. PT ORIENTED TO SELF, COOPERATIVE WITH CARE. DENIES ANY PAIN/SOB. BETANCOURT IN PLACE. BED ALARM ON. WILL CONTINUE TO MONITOR.
--- NOTE | 2022-03-28 18:30 | NUR ---
SHIFT SUMMARY PT HAS SLEPT MOST OF THE SHIFT WITH SOME MOVING ABOUT INBED FOR COMFORT. NO ACUTE CHANGES. PT STILL SET TO DC ON HOSPICE.
--- NOTE | 2022-03-29 06:42 | NUR ---
SHIFT SUMMARY: PATIENT IS A&O TO SELF, PLEASANTLY CONFUSED. BETANCOURT HAS 450 MLS OF YEFRI URINE OUT. PATIENT ATE 100% OF SNACK. HAS NO S/S OF PAIN OR DISCOMFORT.
--- NOTE | 2022-03-29 13:23 | NUR ---
pt resting family called for for update. put phone to his ear and they spoke plan is dc today. Advised staff to medicate for aggiation and comfort so he can tolerate the long ride. He did wake up more with turning and some mild aggitation and grimace reported to nursing.
[2022-03-29] MEDS ORDERED: Ativan1 MG PO (15:24)
--- NOTE | 2022-03-29 15:28 | NUR ---
PATIENT DISCHARGED BACK TO [facility] IN [place], HOSPICE ADMISSION PENDING. SAM POWERGLIDE IV REMOVED WITHOUT INCIDENT. PATIENT HAD NO PERSONAL BELONGINGS AND NO CLOTHING FOUND IN ROOM, DRESSED IN DIAPOSABLE SCRUBS. PRE-MEDICATED WITH ATIVAN 2 MG PO PRIOR TO TRANPORT. SPOKE TO SCARLET CRUZ BY PHONE, GAVE UPDATE. OFF UNIT VIA AMBULANCE AT 1510.
== END 2022-03-29 15:18 | disposition hospice, home (50) | DRG 640 ==
LOC: ICUW 19:03 → MEDS 22:15 → ICUW 23:11 → MEDS 03-24 15:01
PROVIDERS: Family Medicine; Internal Medicine; Internal Medicine Nephrology; ADMIT Internal Medicine
DX: E87.0 Hyperosmolality and hypernatremia (principal); G92.8 Other toxic encephalopathy; N18.4 Chronic kidney disease, stage 4 (severe); N17.9 Acute kidney failure, unspecified; K56.609 Unspecified intestinal obstruction, unspecified as to partial versus complete obstruction; N39.0 Urinary tract infection, site not specified; I47.1 Supraventricular tachycardia; Z51.5 Encounter for palliative care; Z66 Do not resuscitate; F03.90 Unspecified dementia, unspecified severity, without behavioral disturbance, psychotic disturbance, mood disturbance, and anxiety; I73.9 Peripheral vascular disease, unspecified; N26.1 Atrophy of kidney (terminal); D63.1 Anemia in chronic kidney disease; D75.839 Thrombocytosis, unspecified; R77.8 Other specified abnormalities of plasma proteins; N40.1 Benign prostatic hyperplasia with lower urinary tract symptoms; R33.8 Other retention of urine; E87.1 Hypo-osmolality and hyponatremia; F41.9 Anxiety disorder, unspecified; Z79.82 Long term (current) use of aspirin; Z79.899 Other long term (current) drug therapy
CPT/HCPCS: 36415; 51702; 70450; 71045; 74018; 80048; 80053; 80069; 81001; 82330; 82947; 83605; 83735; 83930; 83935; 84100; 84295; 84300; 84484; 85025; 87040; 87086; 92526; 92610; 93005; 93010; 93306; 97116; 97162; 97166; 97530; 97535; A9270; C1751; J0696; J1644; J7070